=== PATIENT | female | born 1960 | race Caucasian/White ===

== ENCOUNTER 2020-05-01 05:21 | Day surgery (SDC) | payer BC ==
[2020-05-01] MEDS ORDERED: Midazolam 1 MG/ML 2 ML SDV IV ONE ×7 (05:22→06:36)
[2020-05-01] MEDS ORDERED: fentaNYL 100 MCG/2 ML SDV IV ONE ×6 (05:22→06:41)
[2020-05-01] MEDS ORDERED: Sodium Chloride 0.9% 10 ML Syringe FLUSH PRN ×2 (06:03→07:29)
[2020-05-01] MEDS ORDERED: Dextrose 5%-0.45% NaCl 1,000 ML IV SCH ×2 (06:15→07:30)
[2020-05-01] MEDS ORDERED: fentaNYL 100 MCG/2 ML SDV ONE (06:22)
[2020-05-01] MEDS ORDERED: Midazolam 1 MG/ML 2 ML SDV ONE (06:22)
[2020-05-01 09:04] VITALS: BP 143/71; PULSE 55
--- NOTE | 2020-05-01 10:23 | OR ---
DATE: 05/01/2020 PROCEDURE: Total colonoscopy, narrow-band imaging, and cold snare polypectomy. INSTRUMENT USED: PCF-H190DL Olympus video colonoscope. PREMEDICATIONS: Fentanyl 175 mcg intravenous, Versed 4 mg intravenous, nasal O2 cannula. The procedure was done under pulse oximetry, BP recording, and cardiac cath lab radiology technologist. INDICATIONS: Screening colonoscopic examination is done for detection of any polypoid lesions and removal, endoscopic hemostasis therapy if needed. DESCRIPTION OF PROCEDURE: Initial rectal exam was unremarkable. Rigid anoscopy was normal. The colonoscope was passed with ease up to the ileocecal area. Photographs were taken of the normal-appearing cecum identified by landmarks of appendiceal orifice and double-bulged ileocecal folds. No bleeding was noted from any of the visualized areas at the commencement of the examination. The bowel preparation was found to be adequate, [place] scale 3 in right and transverse colon, 2 in descending colon, total score 8. No stricture. No vascular ectasia. No large isolated ulcerations seen. No evidence of diffuse inflammatory bowel disease in the form of friability, contact bleeding, or ulcerations. Probing the proximal sides of folds and flexures using adequate distention and clearing up the stool material, withdrawal of the scope was made. In the proximal descending colon, diminutive benign-appearing polyp was noted, NBI views were obtained, photographs were taken, cold snare polypectomy was done. The tissue was retrieved and sent for histopathology. No bleeding was noted from any of the visualized areas at the completion of examination. IMPRESSION: Diminutive colonic polyp. The patient tolerated the procedure well. [facility] /[id number]
== END 2020-05-01 09:07 | disposition home or self-care (01) ==
LOC: DL.ENDO 05:21
PROVIDERS: ATTEND Internal Medicine Gastroenterology
DX: K63.5 Polyp of colon (principal); K21.9 Gastro-esophageal reflux disease without esophagitis; E78.5 Hyperlipidemia, unspecified; K58.9 Irritable bowel syndrome, unspecified; E83.42 Hypomagnesemia; Z79.899 Other long term (current) drug therapy
CPT/HCPCS: 45385; J2250; J3010; J7042

== ENCOUNTER 2025-04-19 05:23 | Day surgery (SDC) | payer BC ==
[2025-04-19] MEDS ORDERED: Lidocaine 2% 20 ML MDV NERVRT ONE (05:24)
[2025-04-19] MEDS ORDERED: Lactated Ringers 1,000 ML IV ONE (05:24)
[2025-04-19] MEDS ORDERED: Propofol 200 MG/20 ML SDV IV ONE (05:24)
[2025-04-19] MEDS ORDERED: Lidocaine 2% 20 ML MDV ONE (05:41)
[2025-04-19] MEDS ORDERED: Propofol 200 MG/20 ML SDV ONE (05:41)
[2025-04-19] MEDS: Lactated Ringers 1,000 ML IV SCH (05:46)
[2025-04-19 07:26] VITALS: BP 139/61; PULSE 60
== END 2025-04-19 08:00 | disposition home or self-care (01) ==
LOC: DL.ENDO 05:23
PROVIDERS: ATTEND Internal Medicine Gastroenterology
DX: Z12.11 Encounter for screening for malignant neoplasm of colon (principal); K64.4 Residual hemorrhoidal skin tags; Z80.0 Family history of malignant neoplasm of digestive organs
CPT/HCPCS: 45378; J7120; J2003; J2704